=== PATIENT | male | born 1960 | race Caucasian/White ===

== ENCOUNTER 2019-11-17 07:57 | Outpatient (CLI) | payer OTHER ==
--- NOTE | 2019-11-17 08:32 | RAD ---
RADIOGRAPH CHEST 2 VIEWS: DATE: 11/17/2019 HISTORY: 59-year-old male with dyspnea FINDINGS: There is no airspace density, pulmonary edema, pleural effusion, pneumothorax, or cardiomegaly. IMPRESSION: No acute cardiopulmonary findings.
== END 2019-11-17 07:58 | disposition home or self-care (01) ==
LOC: RAD 07:57
PROVIDERS: ATTEND Internal Medicine Critical Care Medicine
DX: R06.00 Dyspnea, unspecified (principal)
CPT/HCPCS: 71046

== ENCOUNTER 2021-08-26 15:28 | Outpatient (CLI) | payer BC ==
[~2021-08-26 15:28] MED LIST: Iopamidol 370 76% 100 ML VIAL ONE
== END 2021-08-26 15:29 | disposition home or self-care (01) ==
LOC: CT 15:28
PROVIDERS: ATTEND Allergy & Immunology
DX: J84.9 Interstitial pulmonary disease, unspecified (principal); J44.9 Chronic obstructive pulmonary disease, unspecified
CPT/HCPCS: 71260; 82565; Q9967